=== PATIENT | female | born 1985 | race Caucasian/White ===

== ENCOUNTER 2018-10-26 05:15 | Inpatient (IN) | payer BC ==
[2018-10-26] MEDS ORDERED: Promethazine HCl 25 MG/ML VIAL IM PRN ×3 (05:31→11:22)
[2018-10-26] MEDS ORDERED: Ondansetron PF 4 MG/2 ML Vial IVP PRN ×3 (05:31→11:22)
[2018-10-26] MEDS ORDERED: Bicitra 30 ML UDCUP PO SCH (05:45)
[2018-10-26] MEDS ORDERED: CEFAZOLIN 2 GM in Premix Bag 1 BAG IVPB SCH (05:45)
[2018-10-26 05:59] VITALS: BMI 37.9
[2018-10-26 06:42] LABS: Hemoglobin 13.1 g/dL (12.0-16.0); Mean Corpuscular HGB CONC 35.6 g/dL (32.0-36.0); Mean Corpuscular Hemoglobin 29.7 pg (27.0-31.0); Mean Corpuscular Volume 83.2 fL (78.0-98.0); Mean Platelet Volume 7.3 fL (7.4-10.4); Platelet Count 289 thou/uL (130-400); RBC Distribution Width 12.6 % (11.5-14.5); Red Blood Cell (RBC) Count 4.41 mill/uL (4.20-5.40); White Blood Cell (WBC) Count 14.6 thou/uL (4.8-10.8)
[2018-10-26] MEDS: Lactated Ringer's 1,000 ML IV SCH ×2 (06:45→07:24)
[2018-10-26 06:55] LABS: ALT (SGPT) 11 U/L (8-55); AST (SGOT) 12 U/L (5-34); Albumin 3.8 g/dL (3.5-5.0); Alkaline Phosphatase 137 U/L (40-150); Anion Gap 15 mmol/L (10-20); BUN (Urea Nitrogen) 11 mg/dL (7.0-18.7); Bilirubin, Total 0.4 mg/dL (0.2-1.2); Calc. Creatinine Clearance 175 mL/min (70-130); Calcium 9.6 mg/dL (7.8-10.44); Carbon Dioxide 18 mmol/L (22-29); Chloride 108 mmol/L (98-107); Estimated GFR-MDRD 85; Glucose 80 mg/dL (70-105); Protein, Total 6.8 g/dL (6.0-8.3); Sodium 137 mmol/L (136-145)
[2018-10-26] MEDS ORDERED: MORPHINE 5 MG/10 ML PF VIAL ONE (07:09)
[2018-10-26] MEDS ORDERED: Phenylephrine HCL 10 MG/ML VIAL ONE (07:10)
[2018-10-26] MEDS ORDERED: Oxytocin 10 UNITS/ML VIAL ONE ×3 (07:10→08:15)
[2018-10-26 07:14] LABS: HBSAg Index 0.28 S/CO (0-0.99); Hep B Surf Ag Non-Reactive S/CO (NonReactive); Syphilis Antibody Nonreactive (Nonreactive); Syphilis Antibody Index 0.04 S/CO (<1.00 Non-Reactive)
--- NOTE | 2018-10-26 07:26 | PDOC.LDHP ---
Labor and Delivery H&P Chief complaint: scheduled section HPI: 32yo at 38w4d by LMP here for RCS. No WONG vision change RUQ pain. Has hx of CHTN, not on meds. Current gestational age (weeks): 38 Due date: 11/05/18 Dating criteria: last menstrual period Grav: 2 Para: 1 Current complications: none Abnormal US findings: No Past Medical History: hypothyroid, CHTN Current medications: pre- vitamins, other (levothyroxine 125mcg) Previous surgical history: low tranverse CS Allergies/Adverse Reactions: Allergies Allergy/AdvReac Type Severity Reaction Status Date / Time No Known Drug Allergies Allergy Verified 10/26/18 05:46 Social history: none - Physical Exam Vital signs reviewed and normal: yes General: NAD Heart: RRR Lungs: CTAB Abdomen: gravid Extremeties: no edema FHT: category 1 [place] contractions every: none - OB Labs Blood type: B RH: negative Antibody Screen: negative HIV: negative RPR: negative HEPSAg: negative 1 hour GCT: negative GBS: unknown Urine drug screen: negative Rubella: immune - Assessment L&D Assessment: scheduled repeat section - Plan Plan: admit to L&D, to OR for section, informed consent obtained, anesthesia consult for pain management -: BP mild-severe, no sx PIH, CMP wnl, will get UA protein to ensure no indication for mag.
[2018-10-26] MEDS ORDERED: Fentanyl 100 MCG/2 ML VIAL ONE (08:12)
[2018-10-26] MEDS ORDERED: Ketorolac Tromethamine 30 MG/ML VIAL ONE (08:15)
--- NOTE | 2018-10-26 08:22 | PDOC.OPDEL ---
OB Operative/Delivery Note Delivery Dr/Surgeon: Lianne Assist: NETTE Elder Pre-Delivery Diagnosis: scheduled section (CHTN, IUP at 38w, sterilization) Procedure/Post Delivery Dx: repeat low transverse CS (bilateral salpingectomy) Weeks gestation: 38 Anesthesia: spinal - Findings A Sex: female - Additional Findings/Plan Placenta delivered: spontaneous findings: low transverse hysterotomy without extension, normal uterus, normal tubes, normal ovaries Estimated blood loss: 300 Post delivery plan: routine recovery
[2018-10-26] MEDS ORDERED: diphenhydrAMINE 50 MG/ML VIAL IVP PRN (08:42)
[2018-10-26] MEDS ORDERED: Naloxone HCl 0.4 mg/ml Vial IVP PRN ×2 (08:42)
[2018-10-26] MEDS ORDERED: Ondansetron HCl/PF 4 MG/2 ML Vial IVP PRN (08:42)
[2018-10-26] MEDS ORDERED: HYDROmorphone 2 MG/ML VIAL SLOW IVP PRN (08:42)
[2018-10-26] MEDS ORDERED: Ketorolac Tromethamine 30 MG/ML VIAL IVP PRN (08:42)
[2018-10-26] MEDS ORDERED: L&D-Morphine 4 MG/ML VIAL SLOW IVP PRN (08:42)
[2018-10-26] MEDS ORDERED: Naloxone HCl 0.4 mg/ml Vial IV PRN (08:42)
[2018-10-26] MEDS ORDERED: Promethazine HCl 25 MG SUPP PR PRN (08:42)
[2018-10-26] MEDS ORDERED: Meperidine HCl/PF 25 MG/ML VIAL SLOW IVP PRN (08:42)
[2018-10-26] MEDS ORDERED: Ketorolac Tromethamine 30 MG/ML VIAL IVP SCH (08:45)
[2018-10-26] MEDS ORDERED: Communication Order-Pharmacy FS SCH (08:45)
[2018-10-26] MEDS ORDERED: Ondansetron PF 4 MG/2 ML Vial ONE (10:30)
[2018-10-26] MEDS ORDERED: Acetaminophen 325 MG TAB PO PRN (11:22)
[2018-10-26] MEDS ORDERED: Simethicone Chewable 80 MG TAB PO PRN (11:22)
[2018-10-26] MEDS ORDERED: Bisacodyl 10 MG SUPP PR PRN (11:22)
[2018-10-26] MEDS ORDERED: diphenhydrAMINE 25 MG CAP PO PRN (11:22)
[2018-10-26] MEDS ORDERED: Lanolin Ointment 7 GM TUBE TOP PRN (11:22)
[2018-10-26] MEDS ORDERED: Ferrous Sulfate 325 MG TAB PO SCH (12:00)
[2018-10-26] MEDS ORDERED: Prenatal Vitamin 1 TAB PO SCH (12:00)
[2018-10-26] MEDS ORDERED: Docusate Calcium (SURFAK) 240 MG CAP PO SCH (12:00)
--- NOTE | 2018-10-26 14:27 | OP ---
DATE OF PROCEDURE: 10/26/2018 PREOPERATIVE DIAGNOSES: 1. Intrauterine at 38 weeks and 4 days. 2. Chronic hypertension. 3. Sterilization. 4. Family history of breast cancer. POSTOPERATIVE DIAGNOSES: 1. Intrauterine at 38 weeks and 4 days. 2. Chronic hypertension. 3. Sterilization. 4. Family history of breast cancer. PROCEDURES PERFORMED: Repeat low-transverse section via Pfannenstiel skin incision and bilateral salpingectomies. ANESTHESIA: Spinal. ESTIMATED BLOOD LOSS: 300 mL. IVF: 2 L crystalloid. URINE OUTPUT: 100 mL clear urine. COMPLICATIONS: None. DRAINS: Bhakta catheter. PATHOLOGY: Bilateral fallopian tubes. FINDINGS: Female , cephalic presentation. Weight and Apgars currently pending. Hysterotomy without extension. Normal-appearing ovaries and fallopian tubes bilaterally. Excellent hemostasis. OPERATIVE TECHNIQUE: The patient was taken to the operating room where spinal anesthesia was obtained without difficulty. The patient was prepped and draped in a sterile fashion in dorsal supine position with leftward tilt. After ensuring adequacy of anesthesia, a Pfannenstiel skin incision was made and carried down to the underlying subcutaneous tissue with the Bovie. The fascia was nicked in the midline with the Bovie and carried laterally with the Cervantes scissors. The superior aspect of the fascia was tented with 2 Colby's and dissected off the rectus bluntly. The inferior aspect of the fascia was tented with 2 Colby's and dissected off the rectus down to the pubic symphysis with the Cervantes scissors. The rectus was bluntly divided in the midline. The peritoneum was bluntly entered into and manually retracted. The Miguel O retractor was placed. The lower uterine segment was incised in a transverse fashion and extended with a Mendez maneuver. The infant's head was brought to the hysterotomy and delivered atraumatically with fundal pressure. Delayed cord clamping was performed. The infant was vigorous, and the 's cord was clamped and handed to awaiting Tom team. The cord blood was obtained, and the placenta was allowed to spontaneously deliver. The uterus was exteriorized, cleared of all clots and debris and placed back into the abdomen. The hysterotomy was repaired with a #1 Monocryl in a running locking fashion with excellent hemostasis noted. The hysterotomy was packed. The uterus was removed out of the abdomen, and the left fallopian tube was grasped with 2 Ronnell clamps. A window was made in the mesosalpinx, and the spiral arteries were clamped with hemostats, and the tube was transected, and the clamps were then ligated with 2-0 chromic, noting excellent hemostasis. The same procedure was performed on the contralateral side with hemostasis noted. The uterus was placed back into the abdomen, and irrigation was performed and suctioned. Hysterotomy was noted to be hemostatic. The adnexa were examined and noted to be hemostatic as well. The Miguel O retractor was removed. The rectus muscles were examined and noted to be hemostatic. The fascia was reapproximated with 0 PDS x1 suture with excellent reapproximation. The subcutaneous tissue was irrigated and cauterized of any bleeders and reapproximated with a 2-0 plain gut in a running fashion. The skin was closed with 4-0 Monocryl in subcuticular fashion. Dermabond was applied as well as a pressure dressing. The patient tolerated the procedure well. Sponge and needle counts were correct x2. The patient was taken to recovery room in stable condition. The patient received Ancef 2 g prior to the procedure. Job ID: [id number]
[2018-10-26] MEDS: Ferrous Sulfate 325 MG TAB PO SCH (19:17)
[2018-10-26] MEDS: Ibuprofen 800 MG TAB PO SCH ×2 (19:17→23:01)
[2018-10-26] MEDS ORDERED: HYDROcodone/Acetaminophen 5/325 mg Tablet PO PRN (21:00)
[2018-10-26] MEDS: Docusate Calcium (SURFAK) 240 MG CAP PO SCH (21:41)
[2018-10-27] MEDS: Levothyroxine Sodium 125 MCG TAB PO SCH (05:12)
[2018-10-27] MEDS: Ibuprofen 800 MG TAB PO SCH ×3 (05:12→21:31)
[2018-10-27 06:39] LABS: Mean Corpuscular HGB CONC 34.3 g/dL (32.0-36.0); Mean Corpuscular Hemoglobin 29.4 pg (27.0-31.0); Mean Corpuscular Volume 85.5 fL (78.0-98.0); Mean Platelet Volume 7.1 fL (7.4-10.4); Platelet Count 230 thou/uL (130-400); RBC Distribution Width 12.7 % (11.5-14.5); White Blood Cell (WBC) Count 13.4 thou/uL (4.8-10.8)
[2018-10-27] MEDS ORDERED: Adacel (T-DAP) 0.5 ML SYRINGE IM ONE (09:00)
[2018-10-27] MEDS: Ferrous Sulfate 325 MG TAB PO SCH ×2 (09:02→21:32)
[2018-10-27] MEDS: Docusate Calcium (SURFAK) 240 MG CAP PO SCH ×2 (09:48→21:31)
[2018-10-27] MEDS: Prenatal Vitamin 1 TAB PO SCH (09:52)
--- NOTE | 2018-10-27 09:56 | PDOC.PP ---
Post Progress Note Post Day #: 1 PO intake tolerated: yes Flatus: yes Ambulation: yes Vital Signs (12 hours) Temp Pulse Resp BP Pulse Ox 10/27/18 08:25 98.5 F 63 20 122/76 100 10/27/18 05:00 98.3 F 66 16 121/71 10/26/18 22:59 98.9 F 60 16 130/81 Weight Weight 235 lb - Physical Examination General: NAD Respiratory: non-labored breathing Abdominal: + bowel sounds, no distention, appropriately TTP Fundus firm & at: umb Extremities: negative homans (B) Skin: CS incision dry & intact Neurological: no gross focal deficits Psychiatric: normal affect Result Diagrams: 10/27/18 06:07 10/26/18 06:30 Additional Labs: Post Labs Blood Type B NEGATIVE 10/26/18 06:47 Hep Bs Antigen Non-Reactive S/CO (NonReactive) 10/26/18 06:30 - Assessment/Plan POD1 s/p RCS and RRS at 38w due to CHTN VSSAF CHTN- no meds, BP wnl, no sx PIH Hgb 13-->ebl 375-->hgb 10, acute blood loss anemia, no sx, cont PNV and iron on DC Appropriate postop milestones, pain controlled. Rh neg for rhogam screening, RImm Cont postop care, home tomorrow.
[2018-10-27] MEDS: HYDROcodone/Acetaminophen 5/325 mg Tablet PO PRN ×2 (12:10→18:18)
[2018-10-28] MEDS: Ibuprofen 800 MG TAB PO SCH (06:09)
[2018-10-28] MEDS: Levothyroxine Sodium 125 MCG TAB PO SCH (06:10)
[2018-10-28] MEDS: HYDROcodone/Acetaminophen 5/325 mg Tablet PO PRN (06:11)
[2018-10-28] MEDS: Ferrous Sulfate 325 MG TAB PO SCH (07:37)
[2018-10-28] MEDS: Prenatal Vitamin 1 TAB PO SCH (07:54)
[2018-10-28] MEDS: Docusate Calcium (SURFAK) 240 MG CAP PO SCH (07:55)
[2018-10-28 08:01] VITALS: BP 133/76; TEMP 99.2
--- NOTE | 2018-10-28 08:24 | PDOC.PP ---
Post Progress Note Post Day #: 2 PO intake tolerated: yes Flatus: yes Ambulation: yes Vital Signs (12 hours) Temp Pulse Resp BP Pulse Ox 10/28/18 07:05 99.2 F 58 L 16 133/76 96 10/28/18 04:45 98.0 F 63 18 131/76 10/28/18 00:48 98.6 F 59 L 18 123/71 Weight Weight 235 lb - Physical Examination General: NAD Cardiovascular: RRR Respiratory: non-labored breathing Abdominal: no distention, appropriately TTP Fundus firm & at: umb-2 Skin: CS incision dry & intact Neurological: no gross focal deficits Psychiatric: normal affect Result Diagrams: 10/27/18 06:07 10/26/18 06:30 Additional Labs: Post Labs Blood Type B NEGATIVE 10/26/18 06:47 Hep Bs Antigen Non-Reactive S/CO (NonReactive) 10/26/18 06:30 - Assessment/Plan POD2 s/p RCS and RRS VSSAF Doing well met all postop milestones Rh neg s/p rhogam, RImm DC home FU 2 wk
== END 2018-10-28 14:45 | disposition home or self-care (01) | DRG 784 ==
LOC: L&D 05:15 → 3SW 11:14
PROVIDERS: ADMIT Student in an Organized Health Care Education/Training Program; ATTEND Student in an Organized Health Care Education/Training Program
PROC: 10D00Z1 Extraction of Products of Conception, Low, Open Approach (ICD-10-PCS; principal; 2018-10-26)
PROC: 0UB70ZZ Excision of Bilateral Fallopian Tubes, Open Approach (ICD-10-PCS; 2018-10-26)
DX: O34.211 Maternal care for low transverse scar from previous cesarean delivery (principal); O10.92 Unspecified pre-existing hypertension complicating childbirth; D62 Acute posthemorrhagic anemia; Z3A.38 38 weeks gestation of pregnancy; O99.02 Anemia complicating childbirth; Z37.0 Single live birth
CPT/HCPCS: 36415; 51702; 80053; 85027; 86780; 86850; 86870; 86900; 86901; 87340; 88302; J0690; J1885; J2270; J2370; J2405; J2590; J3010